=== PATIENT | female | born 1960 | race Caucasian/White ===

== ENCOUNTER 2021-05-26 12:55 | Outpatient (CLI) | payer BC | END 2021-05-26 12:56 | disposition home or self-care (01) | LOC: CSHCT 12:55 | PROVIDERS: ATTEND Otolaryngology Plastic Surgery within the Head & Neck | DX: R59.0 Localized enlarged lymph nodes (principal); J35.1 Hypertrophy of tonsils; Q27.8 Other specified congenital malformations of peripheral vascular system | CPT/HCPCS: 70491; 82565 ==